=== PATIENT | female | born 1960 | race Caucasian/White ===

== ENCOUNTER 2017-01-02 07:13 | Day surgery (SDC) | payer OTHER ==
[~2017-01-02] VITALS: Ht 175.3 cm; Wt 137.8 kg
[~2017-01-02 07:13] MED LIST: CALTCHW4 PO; CARI350T19 PO; CYCL-36 PO; DIAZ5 PO; DICL50 PO; HYDR-3534 PO; HYDR50TA94 PO; IBUP600 PO; MEDR4PAK3 PO; META800 PO; METH500T3 PO; PERC5TAB12 PO; PRED50TA PO
[2017-01-02] MEDS ORDERED: IOHEXOL 350 MG/ML 50 ML BTL (for Cath Lab) OTHER ONE (07:14)
[2017-01-02] MEDS ORDERED: SIMV10TA PO (07:55)
[2017-01-02] MEDS ORDERED: LEVO25TA4 PO (07:55)
[2017-01-02] MEDS ORDERED: CALCTAB19 PO (07:55)
[2017-01-02] MEDS ORDERED: HYDR1CAP30 PO (07:55)
[2017-01-02] MEDS ORDERED: GABA600T PO (07:55)
[2017-01-02] MEDS ORDERED: GABA300C5 PO (07:55)
[2017-01-02] MEDS ORDERED: ADVA500A INH (07:55)
[2017-01-02] MEDS ORDERED: BACL20TA PO (07:55)
[2017-01-02] MEDS ORDERED: OXYC1TAB63 PO (07:55)
[2017-01-02] MEDS ORDERED: [UNRECOGNIZED DRUG - OTHER] PO (07:55)
[2017-01-02] MEDS ORDERED: OMEP20TA PO (07:55)
[2017-01-02] MEDS ORDERED: CLON0.5T PO (07:55)
[2017-01-02] MEDS ORDERED: VESI5TAB PO (07:55)
[2017-01-02 07:56] VITALS: BP 144/82; PULSE 86; RESP 18; TEMP 98.2; O2SAT 94
[2017-01-02 08:08] LABS: AUTOMATED NEUTROPHIL # 8.2 TH/MM3 (1.8-7.7); BASOPHIL # 0.1 TH/MM3 (0-0.2); BASOPHIL % 0.8 % (0.0-2.0); EOSINOPHIL # 0.1 TH/MM3 (0-0.4); EOSINOPHIL % 1.2 % (0.0-4.0); HEMATOCRIT 39.8 % (35.0-46.0); HEMO FLAGS DIFF FINAL; LYMPH % 18.6 % (9.0-44.0); MEAN CELL VOLUME 83.3 FL (80.0-100.0); MEAN CORPUSCULAR HEMOGLOBIN 27.8 PG (27.0-34.0); MEAN CORPUSCULAR HGB CONC 33.4 % (32.0-36.0); MONO % 3.8 % (0.0-8.0); NEUT % 75.6 % (16.0-70.0); PLATELET COUNT 251 TH/MM3 (150-450); RED BLOOD COUNT 4.78 MIL/MM3 (4.00-5.30); RED CELL DISTRIBUTION WIDTH 14.7 % (11.6-17.2); WHITE BLOOD COUNT 10.8 TH/MM3 (4.0-11.0)
[2017-01-02 08:13] LABS: APTT (PATIENT) 27.2 SEC (24.3-30.1); INTERNATIONAL NORMALIZED RATIO 0.9 RATIO; PROTHROMBIN TIME - PATIENT 9.8 SEC (9.8-11.6)
[2017-01-02 08:21] LABS: BICARBONATE 26.4 MEQ/L (21.0-32.0); POTASSIUM 3.9 MEQ/L (3.5-5.1)
[2017-01-02] MEDS ORDERED: NS 1000P @30 MLS/HR (KVO) IV SCH (08:30)
[2017-01-02] MEDS ORDERED: NITROGLYCERIN INJ 5 ML ONE (10:19)
[2017-01-02] MEDS ORDERED: VERAPAMIL HCL 5 MG/2 ML VIAL ONE (10:19)
[2017-01-02] MEDS ORDERED: HEPARIN-NS/PF INJ 1,500 ML ONE (10:19)
[2017-01-02] MEDS ORDERED: MIDAZOLAM HCL 2 MG/2 ML VIAL ONE (10:19)
[2017-01-02] MEDS ORDERED: HEPARIN SODIUM - IV 10,000 UNITS/10 ML VIAL ONE (10:19)
--- NOTE | 2017-01-02 11:14 | CATHPROC ---
[place] HIS Report Study Information Study Number Admission Scheduled Start Study Start [id number] Jan 02 2017 7:13AM 01/02/2017 Jan 02 2017 10:01AM [facility] Cardiac Catheterization Admit Source Facility Department Other [facility] Physician and Clinical Staff Initial Tony Christie Relocation Commissioner Brannon RN, Jean RecordBerenice Rob,CASH APPLICATIONS COORDINATOR TECH2 Scrub Jyotsna Gomez,STATEMENT DISTRIBUTION CLERK TECH2 Procedures Performed Procedure Location (Site) Vessel Name Coronary Angiograms LCA Left Coronary Coronary Angiograms RCA Right Coronary Equipment Time Buffing Wheel Former Machine Description Size Mfg Part Number Used/Scraped TRANSDUCER, TRTORRESAVE [id number] 10:12 BULL SCHRADER * Used W/STOCKCOCK *[id number] [facility]-502-10.0- INTRODUCER SET, 10:47 [employer] FR 5 SC-NT-U-SST Used MICROPUNCTURE, STIFFENED *[id number] 534-520T *[id number] 534-521T *[id number] 10:12 [employer] PACK, CCL CUSTOM * Used *[id number] 10:12 [employer] SUPPORT, ARTERIAL ADULT 12052 *[id number] Used [id number] 10:12 [employer] WIRE, EXCHANGE 260CM 3MMJ 260CM Used *[id number] 10:12 [employer]AM[employer] MANIFOLD, 4 PORT * Used *[id number] 10:12 [employer] OMNIPAQUE, 350 MG, 150ML 150ML [id number] Used [id number] 10:12 [employer],WARM AIR CCL * Used *[id number] 10:47 TERUM[employer] MED[employer] SHEATH, FR5 TERUMO (10CM) FR 5 Used *[id number] SHEATH, FR6 TRANSRADIAL RM*[id number] 10:12 [employer]UM[employer] MEDICAL FR 6 Used SLENDER 10CM *[id number] Equipment Model, Serial, Lot Number and Expiration Data Description Model Number Serial Number Lot Number Expiration Date INTRODUCER SET, [id number] 11-29-2019 MICROPUNCTURE, STIFFENED History: Current Medications Medication Dosage/Unit Route Frequency Last Date/Time Taken Statins (any) VITAMIN D Synthroid Prilosec History: Allergies Allergy Reaction hydromorphone RASH History: Risk Factors Family History of Hypertension Dyslipidemia Previous RI Previous Heart Failure Premature CAD Yes No Yes No No Prior Valve Prior PCI Prior CABG Surgery No No No Cerebrovascular Peripheral Artery Chronic Lung On Dialysis Diabetes Disease Disease Disease No No No Yes No History: Symptoms/Diagnosis Selection Items Chest pain History: Stress Tests Stress or Imaging Studies Performed Yes Standard Exercise Stress Test No Stress Echo No Stress Test SPECT Stress Test SPECT Result Stress Test SPECT Ischemia Risk/Extent Yes Positive Intermediate Stress Test CMR No Cardiac CTA Coronary Calcium Score No No History: Other Current Smoker No Labs Hgb (g/dl) Hct (%) WBC (l/cumm) Platelets (thousands) 11.60-17.00 35.00-51.00 4.00-11.00 150.00-450.00 13.3 39.8 10.8 251 Glucose (mg/dl) BUN (mg/dl) Creatinine (mg/dl) BUN:Creatinine (1:x) 74.00-106.00 7.00-18.00 0.50-1.30 10.00-20.00 106 19 0.8 23.8 Na (meq/l) K (meq/l) 136.00-145.00 3.50-5.10 139 3.9 INR (PTT:PT) 0.90-1.10 0.9 CPK-MB (ng/ML) 0.50-3.60 Not Drawn Medication Medication Total Dose (Bolus/Oral) Medication Total Dosage/Unit 1% XYLOCAINE 60 mL FENTANYL 50 mcg VERSED 1 mg Medications (Bolus/Oral) Medication Time Given Dosage/Unit Administered By Reason 01/02/2017 10:32:42 1% XYLOCAINE 20 mL Jean South RN AM 20 mL 1% XYLOCAINE given in lab by Jean South RN via Subcutaneous. 01/02/2017 10:32:46 FENTANYL 25 mcg Jean South RN, AM 25 mcg FENTANYL given in lab by Jean South RN in Left Antecubital via Peripheral IV. Ordered by Tony Dhillon. 01/02/2017 10:33:22 VERSED 0.5 mg Jean South RN, AM 0.5 mg VERSED given in lab by Jean South RN in Left Antecubital via Peripheral IV. Ordered by Tony Resendiz. 01/02/2017 10:35:30 1% XYLOCAINE 20 mL Tony Diallo AM 20 mL 1% XYLOCAINE given in lab by Tony Diallo in Right Radial via Subcutaneous. Ordered by Tony Dhillon. 01/02/2017 10:48:57 1% XYLOCAINE 20 mL Tony Diallo AM 20 mL 1% XYLOCAINE given in lab by Tony Diallo in Right Groin via Subcutaneous. Ordered by Tony Barrera. 01/02/2017 10:49:17 FENTANYL 25 mcg Jean South RN AM 25 mcg FENTANYL given in lab by Jean South RN in Left Antecubital via Peripheral IV. Ordered by Tony Dhillon. 01/02/2017 10:50:11 VERSED 0.5 mg Jean South RN AM 0.5 mg VERSED given in lab by Jean South RN in Left Antecubital via Peripheral IV. Ordered by Tony Resendiz. Medication (Drip) Medication Time Given Dosage/Unit Concentration/Unit Diluent (ml) Solution 01/02/2017 10:08:58 IV Solutions 0 mL (IV) 500 NaCl .9 AM IV Solutions given in lab by Jean South RN in Left Antecubital via Peripheral IV. Pump/Drip Flow = 20 ml/hr using NaCl .9. Initial Case Assessment Cardiovascular HR Rhythm NIBP Chest Pain 85 reg 152/94 0 Edema Present Skin color Skin None Normal Warm Dry Circulatory - Right Pulses Dorsalis Pedis Femoral Radial 2 1 2 Scale (0,1,2,3,4,d) Circulatory - Left Pulses Dorsalis Pedis Femoral Radial 2 1 Scale (0,1,2,3,4,d) Circulatory - Lower Extremities Color Lower Right Color Lower Left Normal Normal Neurological State Oriented to time-place- Alert Moves all extremities person Respiration - General Respiration Rate SpO2 (%) (B/min) 8 98 Final Case Assessment Chronological Log Time Study Chronological Log 10:08:37 Patient arrived via Bed. 10:08:38 Patient Name, D.O.B, / Armband Verified By R.N. 10:08:39 Consent signed by the physician and the patient and verified by the [facility] staff. 10:08:40 Pre-op and post- op instructions given; patient acknowledges understanding of instructions. 10:08:41 Verbal Stimulation=2 Physical Stimulation=2 Airway=2 Respiration=2 TOTAL=8. (0=absent, 1=li mited, 2=present) 10:08:44 Presedation assessment performed by [facility] RN. 10:08:47 Patient has been NPO for More than 6Hrs. 10:08:48 Skin Breakdown none per pt 10:08:52 Patient Warmer Placed on the Table. 10:08:53 Jennifer Prominences Protected 10:08:56 A # 20 IV was noted in the Antecubital (left). Grade = patent IV Solutions given in lab by Jean South RN in Left Antecubital via Peripheral IV. Pump/Drip F low = 20 ml/hr using NaCl 10:08:58 .9. 10:08:59 History and physical on the chart or being dictated. Assessment: Initial Case, HR=85 BPM, Rhythm=reg, GYUR=087/94 mmhg, Chest Pain=0, Edema=None, Co gail=Normal, Skin = Warm, Dry Right Pulses: Oz Ped=2, Femoral=1, Radial=2 Left Pulses: Oz Ped=2, Femoral=1 10:09:00 Lower Right Extremities: Color=Normal Lower Left Extremities: Color=Normal Neurological: State=Alert, Ox3, BARNES Respiration: Resp=8 B/min, SpO2=98 % 10:17:58 Allens test performed on the right radial and ulnar artery. Vitals capture started with the following parameters, Patient=Adult, Interval=3 min, Initial Pr ixdsvg=679 mmHg, 10:18:31 Deflation Rate=5 mmHg, Cuff placed on Left Ankle 10:19:12 HR=79 bpm, LKFT=145/94 mmhg, SpO2=96.0 %, Resp=19 B/min, Pain=0, Davion=10, Verdugo=2 10:22:18 HR=69 bpm, NIBP=81/50 mmhg, SpO2=98.0 %, Resp=27 B/min, Pain=0, Davion=10, Verdugo=2 10:23:12 Right Radial and right groin prepped with 2% chlorhexidine, and draped after a 3 min. waiti ng time. 10:24:54 Vitals capture stopped. Vitals capture started with the following parameters, Patient=Adult, Interval=3 min, Initial Pr qgsgah=044 mmHg, 10:25:08 Deflation Rate=5 mmHg, Cuff placed on Left Ankle 10:25:56 MD arrived. 10:26:11 HR=86 bpm, HJTW=239/83 mmhg, SpO2=96.0 %, Resp=22 B/min, Pain=0, Davion=10, Verdugo=2 10:28:47 HR=78 bpm, MVFC=756/91 mmhg, SpO2=95.0 %, Resp=20 B/min, Pain=0, Davion=10, Verdugo=2 10:29:06 Pressure channel 1 zeroed. Time Out. Correct patient, correct procedure, correct physician, power injector not loaded with contrast with surgical 10:32:07 team present. Time Out Concurred by MD and individual staff in procedure. 10:32:14 HR=84 bpm, MRDA=279/81 mmhg, SpO2=96.0 %, Resp=20 B/min 10:32:42 20 mL 1% XYLOCAINE given in lab by Jean South RN via Subcutaneous. 10:32:46 25 mcg FENTANYL given in lab by Jean South RN in Left Antecubital via Peripheral IV. Orde red by Tony Diallo. 10:32:52 Case Start 10:32:56 Reference ECG taken 10:33:22 0.5 mg VERSED given in lab by Jean South RN in Left Antecubital via Peripheral IV. Ordere d by Tony Diallo. 10:34:46 HR=80 bpm, PHDX=931/88 mmhg, SpO2=95.0 %, Resp=19 B/min 20 mL 1% XYLOCAINE given in lab by Tony Diallo in Right Radial via Subcutaneous. Ordered by Yoel, 10:35:30 Tony. 10:37:48 HR=79 bpm, MUGU=223/92 mmhg, SpO2=93.0 %, Resp=21 B/min 10:41:19 HR=93 bpm, YFVJ=606/88 mmhg, SpO2=95.0 %, Resp=20 B/min 10:44:15 NT=453 bpm, VKMV=458/86 mmhg, SpO2=96.0 %, Resp=18 B/min 10:46:42 Unable to access Right radial artery. 10:46:49 AZ=003 bpm, VDIS=287/79 mmhg, SpO2=97 %, Resp=22 B/min 10:48:57 20 mL 1% XYLOCAINE given in lab by Tony Diallo in Right Groin via Subcutaneous. Order ed by Tony Diallo. 10:49:17 25 mcg FENTANYL given in lab by Jean South RN in Left Antecubital via Peripheral IV. Orde red by Tony Diallo. 10:49:47 HR=86 bpm, GLAS=203/92 mmhg, SpO2=96.0 %, Resp=20 B/min 10:50:11 0.5 mg VERSED given in lab by Jean South RN in Left Antecubital via Peripheral IV. Ordere d by Tony Diallo. 10:51:02 Access site was Right Femoral Artery. A INTRODUCER SET, MICROPUNCTURE, STIFFENED FR 5 was advanced into the Fem Art (right) using the 10:51:09 Percutaneous technique. A SHEATH, FR5 TERUMO (10CM) FR 5 was exchanged in the Fem Art (right). This was necessary in or jason to 10:51:31 accomodate a larger catheter. Recorded Pressure: RFA, HR=82, Condition=Condition 1 10:52:45 (Right Femoral Artery) RFA 150/73/101 10:53:06 An injection in the Fem Art (right) was made through the SHEATH, FR5 TERUMO (10CM) FR 5. A JR 4.0 INFINITI CATHETER FR 5 was advanced over a wire. OMNIPAQUE, 350 MG, 150ML 150ML was us ed for 10:53:22 injections. 10:53:24 HR=77 bpm, PTEK=819/86 mmhg, SpO2=95.0 %, Resp=20 B/min Recorded Pressure: LV, HR=82, Condition=Condition 1 10:55:04 (Left Ventricle) LV 140/8/18 Recorded Pressure: LV, Ao, HR=89, Condition=Condition 1 10:55:17 (Left Ventricle) LV 135/27/18, (Aorta) Ao 131/73/98 10:55:49 HR=83 bpm, CFKU=834/84 mmhg, SpO2=95 %, Resp=18 B/min 10:56:21 The RCA was injected and visualized at various angles. OMNIPAQUE, 350 MG, 150ML 150ML used . After removing the current catheter a JL 4.0 INFINITI CATHETER FR 5 was advanced over a WIRE, E XCHANGE 260CM 10:57:01 3MMJ 260CM. 10:58:47 HR=80 bpm, RLJE=320/89 mmhg, SpO2=95.0 %, Resp=18 B/min 10:59:15 The LCA was injected and visualized at various angles. OMNIPAQUE, 350 MG, 150ML 150ML used . 11:01:18 Catheter was removed over wire 11:01:52 HR=83 bpm, UZAX=390/77 mmhg, SpO2=96 %, Resp=18 B/min 11:02:24 Case End 11:04:48 MWNV=811/89 mmhg 11:06:12 Vitals capture stopped. 11:07:44 Assessment: Final Case 11:07:46 Sheath(s) left in place, will be removed in Holding Area 11:07:50 Sterile dressing applied to site 11:07:51 No case complications noted. 11:07:53 Cine recording checked. 11:07:55 Bedside Report will be given. 11:07:58 Patient moved to bed 11:11:14 Patient transported to DOCU End Study - Contrast Media Used In Study Contrast Total Opened (mL) Total Used (mL) Total Wasted (mL) Omnipaque 40 40 0 End Study - Maximum Contrast Load Max Contrast Load (mL) 861.4 End Study - Radiation Exposure Fluoro Time (minutes) 2.4 End Study - Patient Disposition Complications Transferred To Interventional Outcome No Telemetry Bed No attempt made
[2017-01-02] MEDS ORDERED: MISC INFORMATION XX ONE (11:15)
[2017-01-02] MEDS ORDERED: oxyCODONE/ACETAMINOPHEN 5 MG/325 MG TAB PO PRN (11:15)
[2017-01-02] MEDS ORDERED: SODIUM CHLOR 0.9% 250 ML INJ 250 ML IV PRN (11:15)
[2017-01-02] MEDS ORDERED: ATROPINE SULFATE 1 MG/ML VIAL IV PUSH PRN (11:15)
[2017-01-02] MEDS ORDERED: ONDANSETRON HCL 4 MG/2 ML VIAL IV PUSH PRN (11:15)
--- NOTE | 2017-01-02 14:46 | EKG ---
Date Performed: 01/02/2017 Time Performed: 08:09:36 PTAGE: 56 years EKG: Sinus rhythm Leftward axis Incomplete RBBB Possible inferior infarct - age undetermined Right ventricular hypertr ophy Low QRS voltages in precordial leads Abnormal ECG NO PREVIOUS TRACING DOCTOR: oTny Diallo Interpretating Date/Time 01/02/2017 14:44:51
--- NOTE | 2017-01-03 06:01 | MA ---
cc: TONY EWING DO DATE OF PROCEDURE January 02, 2017 PROCEDURE Left heart catheterization, coronary angiogram, moderate sedation 30 minutes. PREPROCEDURE DIAGNOSES Chest pain. Preoperative cardiac evaluation. Abnormal stress test. POSTPROCEDURE DIAGNOSIS Mild coronary artery disease. MEDICATIONS Versed 1 mg. Fentanyl 50 mcg. CONTRAST USED 40 cc. FLUOROSCOPY 2.4 minutes. MODERATE SEDATION 30 minutes. ESTIMATED BLOOD LOSS 10 cc. PROCEDURAL SUMMARY Jyotsna Neri is a pleasant 56-year-old female whom I see in the office for preoperative evaluation. She states that she has been having chest pain and because of this she underwent stress testing which was abnormal. Because of this she was recommended cardiac catheterization. The risks, benefits and alternatives were explained to and she consented as such. She was brought to lab and prepped in the usual sterile fashion. The right radial artery was attempted to be accessed but on ultrasound was relatively small and because of this the radial artery approach was abandoned. The right femoral artery was accessed using a modified Seldinger technique and placement of a 5-Hebrew sheath. This was easily aspirated and flushed. A JR-4 was advanced over a J-wire to the ascending aorta and across the aortic valve for measurement of left ventricular pressure. This was pulled back across the aortic valve showing no significant gradient of aortic stenosis. JR-4 was used for selective angiography of the right coronary artery. This was exchanged out for a JL-4 which was used for selective angiography of the left coronary artery system. The JL-4 was removed over a J-wire. The femoral artery sheath was sutured in place with a plan to remove once in the DOC Unit. The patient left the rn labor and delivery cardiovascularly stable. FINDINGS LEFT MAIN: A normal-sized vessel with no significant disease. It bifurcates into an LAD and circumflex. LAD: A normal-sized vessel with mild luminal irregularities distally but no significant disease. It gives off one major diagonal with an upper and lower branch with no significant disease. CIRCUMFLEX: A normal-sized vessel with one major obtuse marginal which has mild tortuosity but no significant disease. RCA: Normal-size vessel which is dominant in nature. It has mild luminal irregularities distally but no significant disease. LVEDP 18. IMPRESSIONS 1. Atypical chest pain. 2. Abnormal stress test, most likely false positive. 3. Minimal to mild coronary artery disease by catheterization. RECOMMENDATIONS 1. Ms. Neri appears to have mild coronary artery disease at most. 2. Her stress test is most likely a false positive. 3. She may proceed for surgery by Dr. Martinez. 4. We will plan on discharging her today. Thank you for allowing me to see Jyotsna Neri. If there are any questions please do not hesitate to call. Tony Ewing DO VGP/SSB /10:45 PM /5:44 AM
== END 2017-01-02 18:03 | disposition home or self-care (01) ==
LOC: HDIC 07:13 → HCAT 07:13
PROVIDERS: ATTEND Nuclear Medicine Nuclear Cardiology
DX: R07.89 Other chest pain (principal); I25.10 Atherosclerotic heart disease of native coronary artery without angina pectoris; R94.39 Abnormal result of other cardiovascular function study; R73.03 Prediabetes; Z01.818 Encounter for other preprocedural examination; Z01.810 Encounter for preprocedural cardiovascular examination
CPT/HCPCS: 80048; 85025; 85610; 85730; 93005; 93454; C1769; C1893; J1644; J2250; J3010; Q9967